=== PATIENT | female | born 1990 | race Caucasian/White ===

== ENCOUNTER 2017-02-09 06:25 | Inpatient (IN) | payer BC ==
[~2017-02-09] VITALS: Ht 157.5 cm; Wt 80.7 kg
--- NOTE | ~2017-02-09 | FD ---
ADMIT: 02/09/2017 RM/LOC: 227 [facility] MR#: [id number] 2620 [facility] [address] [place] [phone] [place] [address] Final Diagnosis SEX: F AGE: 26 : 1990 ADMISSION DATE: 02/09/2017 DISCHARGE DATE: 02/11/2017 FINAL DIAGNOSIS: 1. Intrauterine at term. 2. Gestational diabetes, A2. PROCEDURE: Spontaneous vaginal delivery. Juhi Lindquist MD/ mellisa JOB #: [id number] CC: Juhi Lindquist MD, Attending Physician Juhi Lindquist MD, Family Physician
[2017-02-12] MEDS ORDERED: TYLENOL #3 DPS1 TAB PO (10:41)
[2017-02-12] MEDS ORDERED: NIPPLECREAM TP (10:41)
[2017-02-12] MEDS ORDERED: MOTRIN-DPS800 MG PO (10:41)
--- NOTE | 2017-03-09 09:12 | OR ---
ADMIT: 02/09/2017 RM/LOC: 227 [facility] MR#: [id number] [address] [place] [phone] [place] [address] Operative/Delivery Room Report SEX: F AGE: 26 : 1990 SURGERY DATE: 02/10/2017 SURGEON: Juhi Lindquist MD NAME OF PROCEDURE: Spontaneous vaginal delivery. PREOPERATIVE DIAGNOSES: 1. Intrauterine at 39-2/7th weeks' gestation. 2. Gestational diabetes, type A2. POSTOPERATIVE DIAGNOSES: 1. Intrauterine at 39-2/7th weeks' gestation. 2. Gestational diabetes, type A2. FINDINGS: Liveborn male , scores 9 at 1 minute, 9 at 5 minutes. Weight 8 pounds 5 ounces. ESTIMATED BLOOD LOSS: 150 mL. ANESTHESIA: Epidural. COMPLICATIONS: None. INDICATIONS FOR PROCEDURE: The patient is a 26-year-old 2, para 1-0-0- 1, who presented to Labor and Delivery at 39-2/7th weeks' gestation by last menstrual period with estimated date of confinement of 02/14/2017. The patient presented for scheduled induction of labor at term due to gestational diabetes, which had been controlled with glyburide. The patient received misoprostol and then had Pitocin augmentation of labor. The patient progressed through labor to completely dilated and pushed, bringing the 's vertex to the perineum. DESCRIPTION OF PROCEDURE: The patient was noted to be complete and pushing ADMIT: 02/09/2017 RM/LOC: 227 [facility] MR#: [id number] [address] [address] [place] [id number] Operative/Delivery Room Report SEX: F AGE: 26 : 1990 with the infant's vertex at the perineum. The patient pushed and the infant's vertex delivered in the occiput anterior position over midline. This restituted to the left occiput anterior and the anterior shoulder delivered, the posterior shoulder followed and the remainder of the delivered without difficulty as well. The was dried and handed off to the mother's abdomen where nursing personnel were in attendance. A 20 units of Pitocin were placed in the IV bag to firm the uterus. The cord was clamped and cut. The placenta then delivered intact spontaneously. The cervix was examined and was noted to be free of lacerations. The vaginal vault and perineum were examined and were also noted to be free of lacerations. The patient tolerated the procedure well. All sponge and needle counts were correct. The patient and recovered in the room in stable condition. Juhi Lindquist MD/ handy JOB #: [id number] CC: Juhi Lindquist, Attending Physician Juhi Lindquist, Family Physician
--- NOTE | 2017-03-09 09:17 | OR ---
ADMIT: 02/09/2017 RM/LOC: 227 [facility] MR#: [id number] [address] [address] JANNIE CAZARES [address] [place] [address] Operative/Delivery Room Report SEX: F AGE: 26 : 1990 SURGERY DATE: 02/10/2017 SURGEON: Juhi Lindquist MD NAME OF PROCEDURE: Removal of epidural catheter. PROCEDURE IN DETAIL: The patient is a 26-year-old female, 2, para 1, who had presented to Labor and Delivery at 39-2/7th weeks' gestation for scheduled induction of labor due to gestational diabetes at term. The patient progressed through labor and had an epidural placed for pain control during labor. Following delivery, the patient was placed in a sitting position. The epidural catheter was removed and the blue tip was noted to be intact. The patient tolerated the procedure well. Juhi Lindquist MD/ handy JOB #: [id number] CC: Juhi Lindquist, Attending Physician Juhi Lindquist, Family Physician
--- NOTE | 2017-03-27 08:03 | HP ---
ADMIT: 02/09/2017 RM/LOC: 227 [facility] MR#: [id number] [address] [address] [place] [address] History and Physical SEX: F AGE: 26 : 1990 DATE OF SERVICE: INDICATIONS FOR ADMISSION: Scheduled induction of labor at term. HISTORY OF PRESENT ILLNESS: The patient is a 27-year-old 2, para 1-0- 0-1, who presented to Labor and Delivery at 39-2/7th weeks' gestation by last menstrual period with estimated confinement on 02/14/2017. The patient's had been complicated by gestational diabetes, which had been controlled with glyburide. The patient also has a history of chlamydia early in . The patient presented for scheduled induction of labor at term secondary to diabetes. LABORATORY DATA: Blood type O positive, antibody screen negative, RPR nonreactive, rubella immune, group B Strep negative, HIV negative, gonorrhea negative, chlamydia positive, and hep B surface antigen negative. PAST MEDICAL HISTORY: Noncontributory. PAST SURGICAL HISTORY: None. CURRENT MEDICATIONS: Glyburide 2.5 mg twice daily and iron 325 mg daily. ALLERGIES: NO KNOWN MEDICAL ALLERGIES. SOCIAL HISTORY: The patient is . She denies any alcohol, tobacco, or drug use. FAMILY HISTORY: Aunt and sister with asthma and sister with depression. PHYSICAL EXAMINATION: VITAL SIGNS: On admission, blood pressure 114/66, pulse 93, temp 97.2, and respirations 18. GENERAL: The patient is alert and oriented, in no acute distress. HEART: Regular rate and rhythm without murmurs, gallops, or rubs. LUNGS: Clear to auscultation bilaterally. ABDOMEN: Soft and nontender. Gravid. EXTREMITIES: No edema. No calf tenderness. ADMIT: 02/09/2017 RM/LOC: 227 [facility] MR#: [id number] 2620 [facility] [address] [place] [address] JANNIE [place] [address] History and Physical SEX: F AGE: 26 : 1990 heart tones are in the 130s with moderate variability and accelerations present. Contractions are irregular on admission. Cervix 1 cm dilated, 50% effaced, -3 station. ASSESSMENT AND PLAN: 1. A 27-year-old 2, para 1-0-0-1 at 39-2/7th weeks' gestation. 2. Gestational diabetes, type A2. Plan to induce labor due to this. We will begin diabetic protocol labor. 3. History of chlamydia. The patient did have a negative test during the . 4. Anemia of . Juhi Lindquist MD/ starrl JOB #: [id number] CC: Juhi Lindquist MD, Attending Physician Juhi Lindquist MD, Family Physician
[2017-04-02] MEDS ORDERED: NORCO 5-325 TA1 EACH PO (18:14)
== END 2017-02-11 16:00 | disposition home or self-care (01) | DRG 775 ==
LOC: BC 06:25 → 2LDRP 06:25 → BC 02-14 08:00
PROVIDERS: ADMIT Obstetrics & Gynecology
PROC: 10E0XZZ Delivery of Products of Conception, External Approach (ICD-10-PCS; principal; 2017-02-10)
PROC: 3E0P7GC Introduction of Other Therapeutic Substance into Female Reproductive, Via Natural or Artificial Opening (ICD-10-PCS; principal; 2017-02-10)
DX: O24.425 Gestational diabetes mellitus in childbirth, controlled by oral hypoglycemic drugs (principal); Z37.0 Single live birth; Z3A.39 39 weeks gestation of pregnancy

== ENCOUNTER 2017-03-08 06:28 | Emergency (ER) | payer BC ==
[~2017-03-08 06:28] MED LIST: MOTRIN-DPS800 MG PO; NIPPLECREAM TP; TYLENOL #3 DPS1 TAB PO
--- NOTE | 2017-03-08 19:47 | ER ---
ADMIT: 03/08/2017 RM/LOC: ER [facility] MR#: [id number] 2620 [facility] [address] JANNIE CAZARES [address] [place], [place] [address] Emergency Room Report SEX: F AGE: 26 : 1990 DATE: 03/08/2017 The patient is a 26-year-old female, recent , complaining of GERD symptoms since late . Has been using fqeu-oza-fljjpmi Nexium with minimal improvement. States she will at times wake up with coughing paroxysms. States the pain is much worse today, in the midepigastrium, radiating to back. Denies any fevers, chills. Exam remarkable for nontoxic, afebrile female, responded well to GI cocktail, Zofran. Advised n.p.o. 4 hours before bedtime. Sleep with head of bed elevated as needed. No more pop. Protonix 40 mg daily instead of bbnf-cxg-llrgjbq Nexium. Follow up Dr. Grande if not improved for possible EGD versus biliary colic evaluation. Klever Vences MD/ handy JOB #: [id number] CC: Klever Vences MD, Attending Physician Denice Grande MD, Family Physician Denice Grande MD
[2017-04-02] MEDS ORDERED: NORCO 5-325 TA1 EACH PO (18:14)
== END 2017-03-08 06:55 | disposition home or self-care (01) ==
LOC: ER 06:28
DX: O99.63 Diseases of the digestive system complicating the puerperium (principal); K21.9 Gastro-esophageal reflux disease without esophagitis; Z79.899 Other long term (current) drug therapy

== ENCOUNTER 2017-03-26 06:09 | Emergency (ER) | payer BC, MEDICAID ==
--- NOTE | 2017-03-31 23:42 | ER ---
ADMIT: 03/26/2017 RM/LOC: ER [facility] MR#: [id number] [address] [address] JANNIE CAZARES [address] [place], [place] [address] Emergency Room Report SEX: F AGE: 27 : 1990 DATE: 03/26/2017 TIME: 0609 hours. Please refer to my T-sheet for complete H and P. HISTORY OF PRESENT ILLNESS: Briefly, the patient is a 27-year-old, who comes in with abdominal pain, it goes to her back and shoulder, it is mostly at night, it has been on and off for 4 months. She is 6 weeks , it has been getting worse. Last night, it was very severe. She is very nauseous and she cannot eat. PHYSICAL EXAMINATION: VITAL SIGNS: Stable. HEENT: Normal. LUNGS: Clear. ABDOMEN: Soft, tender to palpation in the right upper quadrant and epigastric. Positive Oliva's sign. EMERGENCY DEPARTMENT COURSE: CBC was normal. Chemistry was normal except for AST 202, ALT 104. Ultrasound, I discussed directly with the radiologist, it showed a thick walled gallbladder, multiple stones. Due to her elevation in liver functions and a thickened wall, I called Dr. Ann. He would gladly see the patient in the hospital if she wished. 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 ASSESSMENT: 1. Biliary colic. 2. Cholecystitis. 3. Increased liver function tests. Even though there are some signs of cholecystitis, the patient wants to go home and will come back and have it done by Dr. Ann as an outpatient sooner than later. PLAN: Follow up with Marissa and return if worse. Low-fat diet. Ethan Griffin MD/ handy JOB #: [id number] CC: Warren Butt MD, Attending Physician UNKNOWN, Family Physician Radha Reyes PA-C
[2017-04-02] MEDS ORDERED: NORCO 5-325 TA1 EACH PO (18:14)
== END 2017-03-26 08:38 | disposition home or self-care (01) ==
LOC: ER 06:09
DX: K80.60 Calculus of gallbladder and bile duct with cholecystitis, unspecified, without obstruction (principal); R94.5 Abnormal results of liver function studies; F17.210 Nicotine dependence, cigarettes, uncomplicated

== ENCOUNTER 2017-03-31 06:38 | Observation (INO) | payer BC, MEDICAID ==
[~2017-03-31] VITALS: Ht 157.5 cm; Wt 72.0 kg
--- NOTE | ~2017-03-31 | OR ---
ADMIT: 03/31/2017 RM/LOC: W.12 [facility] MR#: [id number] [facility]#: [id number] 2620 [facility] [address] [place] [address] JANNIE CAZARES [address] [place] [address] Operative/Delivery Room Report SEX: F AGE: 27 : 1990 Corrected: 04/02/2017606 nj SURGERY DATE: 04/01/2017 SURGEON: Herberth Ann MD [employer]IAN: LILIANA Bond. PRE-PROCEDURE DIAGNOSIS: Chronic cholecystitis. POSTPROCEDURE DIAGNOSIS: Chronic cholecystitis. PROCEDURE: Laparoscopic cholecystectomy with intraoperative cholangiogram. INDICATIONS: The patient is a 27-year-old female with recurrent postprandial right upper quadrant pain attacks with ultrasonographic evidence of gallstones who presents for laparoscopic cholecystectomy. FINDINGS: The patient was taken to the operating room. General endotracheal anesthesia was induced. The patient's abdomen was prepped and draped in normal sterile fashion. The case was begun by making a transverse, supraumbilical 5 mm skin incision using a #11 blade. A retractable 5 mm port was placed within the abdomen. The abdomen was insufflated with CO2 to an intra-abdominal pressure of 15 mmHg. A camera was placed showing no bowel or vascular injury. A midepigastric 11 mm port as well as 2 right upper quadrant 5 mm ports were placed under direct vision. The case was begun by grasping the fundus and infundibulum, and gallbladder using atraumatic clamps. A Kate instrument electrocautery was used to dissect out an anterior cystic arterial branch with 2 clips proximally, 1 distally, and the artery was severed. We then dissected out the cystic duct with a proximal clip on the duct. The duct was cut in half. A cholangiogram catheter was placed and a cholangiogram was shot showing no filling defects with contrast flow into the duodenum as well as intrahepatic ductal filling of contrast. The cholangiogram catheter was then removed. Two distal cystic duct clips were applied. Remainder of the duct was then severed. We then identified a posterior cystic arterial branch with 2 proximal 1 distal clip, and the artery was severed. The remainder of dissection was then carried out using electrocautery from a posterior to anterior fashion removing the gallbladder from liver bed. The gallbladder was placed in an EndoCatch bag and brought out through the midepigastric port site. On reexamination of the operative site, there was a small amount of ADMIT: 03/31/2017 RM/LOC: W.12 [facility] MR#: [id number] [address] [address] [place] [address] Operative/Delivery Room Report SEX: F AGE: 27 : 1990 liver bed bleeding controlled easily with electrocautery. The air was then irrigated and suctioned out. A 0.5% Marcaine was injected subdermally, subfascially for postoperative analgesia. The midepigastric fascial incision was closed with [id number] 0 Polysorb suture passer. The air was desufflated. The port sites removed. The skin sites were closed with interrupted 4-0 Vicryl subcuticular skin stitches. The wounds were cleaned and dried. Steri-Strips and Tegaderms were applied over the top. Needle, sponge, and instrument counts were correct at the end of the case. The patient wheeled to recovery room in good condition. Herberth Ann MD/ handy JOB #: [id number] CC: Herberth Ann, Attending Physician Herberth Ann, Family Physician Corrected: 04/02/2017 0607 njv
--- NOTE | ~2017-03-31 | HP ---
ADMIT: 03/31/2017 RM/LOC: 630 [facility] MR#: [id number] [address] [address] JANNIE CAZARES [address] [place] [place], [place] [address] Pre-OP History and Physical SEX: F AGE: 27 : 1990 DATE OF SERVICE: 03/31/2017 HISTORY OF PRESENT ILLNESS: The patient is a 27-year-old female, first seen by LILIANA Bond, who presents with postprandial right upper quadrant, right periscapular, back pain. She has had many episodes like this. It is about 6 weeks into her recent . She is about now 7 weeks post . She was to see me tomorrow in clinic, but due to the recurrent attacks and pain, was unable to tolerate things at home, was admitted for pain control and scheduled for a cholecystectomy. PAST MEDICAL HISTORY: Includes recent , gestational diabetes. PAST SURGICAL HISTORY: She has had no previous surgeries. ALLERGIES: HAS NO ALLERGIES. MEDICATIONS: Takes no home medications. FAMILY HISTORY: Noncontributory. SOCIAL HISTORY: She is a social drinker and uses tobacco. REVIEW OF SYSTEMS: Denies headaches, chest pain, or shortness of breath. She had the abdominal pain per HPI. No extremity complaints. No hematologic, neurologic, or psychiatric issues. PHYSICAL EXAMINATION: VITAL SIGNS: She is afebrile. Vitals are stable. HEART: Regular. LUNGS: Clear. ABDOMEN: Soft, nondistended, and tender to palpation in the right upper quadrant. EXTREMITIES: She has no peripheral edema. NEUROLOGIC: No focal neurologic deficits. ASSESSMENT AND PLAN: The patient is a 27-year-old who presents with signs, symptoms, and radiographic evidence consistent with chronic cholecystitis. We will admit her for pain control, antibiotics, and laparoscopic cholecystectomy. The risks and benefits were discussed. Herberth Ann MD/ handy JOB #: [id number] CC: Herberth Ann, Attending Physician Herberth Ann, Family Physician
[2017-04-02] MEDS ORDERED: NORCO 5-325 TA1 EACH PO (18:14)
--- NOTE | 2017-04-13 08:58 | HP ---
ADMIT: 03/31/2017 RM/LOC: 630 [facility] MR#: [id number] [address] [address] JANNIE CAZARES [address] [place], [place] [address] History and Physical SEX: F AGE: 27 : 1990 DATE OF SERVICE: 03/31/2017 CHIEF COMPLAINT: Abdominal pain. HISTORY OF PRESENT ILLNESS: Jannie is a very pleasant 27-year-old female, who is 7 weeks who noticed abdominal pain as "attacks" that started approximately 6 weeks into her . The abdominal pain was in the right upper quadrant that radiates to the epigastric region into her right shoulder in the anterior aspect. At first, it was just for few seconds and resolved on its own, but she continued to have these attacks weeks apart, which then turned to days apart and now is to the point where there are too many to count and the attacks last for several hours. She also gets nauseous and has some sweats during these attacks. There is nausea with emesis. She denies any hematemesis or dark or bloody stools. PAST MEDICAL HISTORY: 1. , 7 weeks. 2. Gestational diabetes. PAST SURGICAL HISTORY: None. ALLERGIES: NO KNOWN DRUG ALLERGIES. MEDICATIONS: No home medications. FAMILY HISTORY: Noncontributory. SOCIAL HISTORY: The patient is a social drinker and tobacco user, but denies any illicit drug use. REVIEW OF SYSTEMS: The patient denies any fever, chills, or night sweats. EYES: The patient has noticed floaters during , but had her eyes checked out and has a followup appointment. She denies any blurriness or eye pain. The rest of comprehensive 10-point review of systems was performed and all other systems are negative. PHYSICAL EXAMINATION: GENERAL: The patient in no acute distress. She is alert and oriented. HEENT: Head is normocephalic and atraumatic. EOMs are intact. Conjunctivae free of icterus, erythema, or pallor. Pinnae, free of deformities. Nose, midline. No tracheal deviation. NECK: Supple. SKIN: Negative for jaundice, clubbing, edema, pallor, or cyanosis. LUNGS: Clear to auscultation bilaterally. Normal respiratory effort. HEART: Distal pulses intact. Regular rate and rhythm. No murmurs noted. ABDOMEN: Soft. Mildly distended and mildly tender in the right upper quadrant. Negative Oliva sign. NEURO: Grossly intact. ADMIT: 03/31/2017 RM/LOC: 630 [facility] MR#: [id number] [address] [address] [address] [place] [address] History and Physical SEX: F AGE: 27 : 1990 LABORATORY DATA: White blood cell count 9.9, alkaline phosphatase 176, AST is 398, and ALT is 238. Lipase is within the normal limits. DIAGNOSTIC IMAGING: Ultrasound of gallbladder revealed cholelithiasis. ASSESSMENT: Cholelithiasis. PLAN: The plan is to have the patient undergo laparoscopic, possible open cholecystectomy with intraoperative cholangiogram. I discussed the risks, alternatives, benefits, and complications of surgery with the patient to which she is agreement of this plan, had all her questions answered and would like to proceed. She is on the surgery schedule, so we will admit her tonight and proceed with surgery tomorrow. LILIANA Bond / Herberth Ann MD / handy JOB #: [id number] CC: Herberth Ann, Attending Physician Herberth Ann, Family Physician
--- NOTE | 2017-04-19 15:43 | ER ---
ADMIT: 03/31/2017 RM/LOC: 630 [facility] MR#: [id number] [address] [address] J[place] [address] Emergency Room Report SEX: F AGE: 27 : 1990 DATE: 03/31/2017 This 27-year-old with known gallbladder disease comes with complaints of right upper quadrant pain. She is already scheduled for a cholecystectomy tomorrow. She does not think she could wait because the pain is becoming more severe. PHYSICAL EXAMINATION: GENERAL: Reveals a young female, in no acute distress. LUNGS: Clear. CARDIOVASCULAR: No murmur. Regular rate and rhythm. ABDOMEN: Mildly tender in the right upper quadrant. EXTREMITIES: Unremarkable. CBC was within normal limits. LFTs are minimally elevated. On the CMP, the total bilirubin is normal. Lab studies from her prior ER visit on the were reviewed. The patient is being admitted for pain control and postoperative management of her cholecystitis. Teofilo Hardy MD/ handy JOB #: [id number] CC: Herberth Ann MD, Attending Physician Herberth Ann MD, Family Physician
== END 2017-04-01 14:18 | disposition home or self-care (01) ==
LOC: ER 06:38 → 6PED 08:44 → WOR 08:44 → 6PED 08:44 → WOR 04-01 11:10
PROVIDERS: ADMIT Surgery
PROC: BF12YZZ Fluoroscopy of Gallbladder using Other Contrast (ICD-10-PCS; principal; 2017-04-01)
PROC: 0FT44ZZ Resection of Gallbladder, Percutaneous Endoscopic Approach (ICD-10-PCS; principal; 2017-04-01)
DX: K80.10 Calculus of gallbladder with chronic cholecystitis without obstruction (principal)